=== PATIENT | female | born 1960 | race Caucasian/White ===

== ENCOUNTER 2018-01-27 11:53 | Emergency (ER) | payer OTHER ==
[~2018-01-27] VITALS: Ht 170.2 cm; Wt 63.6 kg
[2018-01-27 11:56] VITALS: BP 111/66
[2018-01-27 12:04] LABS: GLUCOSE,POINT OF CARE 434 MG/DL (70-110)
[2018-01-27] MEDS ORDERED: INSULIN SQ (12:05)
[2018-01-27] MEDS ORDERED: SULFAMETHOX/TRIMETH DS 800-160 MG/TABLET PO ONE (16:00)
== END 2018-01-27 16:00 | disposition left against medical advice (07) ==
LOC: EMS 11:54
DX: L03.211 Cellulitis of face (principal); E11.9 Type 2 diabetes mellitus without complications
CPT/HCPCS: 99283

== ENCOUNTER 2018-09-04 19:57 | Emergency (ER) | payer OTHER ==
[~2018-09-04] VITALS: Ht 170.2 cm; Wt 63.6 kg
[~2018-09-04 19:57] MED LIST: INSULIN SQ
[2018-09-04] MEDS ORDERED: PB/HYOSCY/ATR/SCOP/LIDO/MAALOX 55 ML BOTTLE PO ONE (20:30)
[2018-09-04] MEDS ORDERED: GLUCAGON,HUMAN RECOMBINANT 1 MG VIAL IM ONE (20:30)
[2018-09-04] MEDS ORDERED: IBUPROFEN 800 MG TABLET PO ONE (21:45)
[2018-09-04] MEDS ORDERED: MAG HYDROX/AL HYDROX/SIMETH ES 30 ML SUSPENSION UDCUP PO ONE (21:45)
[2018-09-04 22:45] VITALS: BP 128/76
== END 2018-09-04 23:05 | disposition home or self-care (01) ==
LOC: EMS 20:01
DX: T18.128A Food in esophagus causing other injury, initial encounter (principal); F41.9 Anxiety disorder, unspecified; E11.9 Type 2 diabetes mellitus without complications; Z79.4 Long term (current) use of insulin; Y92.89 Other specified places as the place of occurrence of the external cause
CPT/HCPCS: 70360; 82962; 96372; 99284; J1610